=== PATIENT | male | born 1950 | race Two or more races ===

== ENCOUNTER 2025-01-06 09:21 | Inpatient (IN) | payer MEDICARE, MEDICAID ==
[~2025-01-06] VITALS: Ht 170.2 cm; Wt 46.8 kg
[2025-01-06] VITALS (8 sets, daily range): BP systolic 92–120; BP diastolic 46–61; PULSE 78–97; RESP 17–28; TEMP 98.2–98.4; O2SAT 96–100
--- NOTE | 2025-01-06 09:30 | ED.PDOC ---
SOB-HPI HPI Comments 74 year old male with PMHx COPD, HLD presents to the ED via EMS with a chief complaint of shortness of breath onset today (01/06/25). Per EMS, patient was experiencing shortness of breath was anxious, O2 was 60% on RA. Patient was placed on c-pap, given a breathing treatment in route to ED, O2 sat improved to 85%. Patient is a poor historian. No other symptoms or modifying factors present at this time. Chief Complaint: Shortness of Breath Time Seen by MD: 09:20 Reviewed notes: Medications, Allergies Information Source: Patient, Emergency Med Personnel Mode of Arrival: EMS Severity: Moderate Timing: Hours Duration: Since onset Context: At Rest PE Risk Factors: None History of: COPD, Anxiety Prehospital treatment: Breathing Tx, C-Pap Modifying Factors: Nothing Associated Signs and Symptoms: Anxiety Past Medical History PAST MEDICAL HISTORY: Anxiety, COPD, High Lipids Surgical History: Denies all surgeries Family History Family History: Reviewed,noncontributory to illness, No family hx of Cancer, No family hx of DM, No family hx of Heart carole, No family hx of HTN, No family hx ofKidney carole, No family hx of Liver carole, No family hx of Lung carole, No family hx of Stroke Social History Smoker: Non-Smoker Alcohol: Denies ETOH Use Drugs: Denies Drug Use Lives In: Home Constitutional: denies: chills, diaphoresis, fatigue, fever, malaise, sweats, weakness, others EENTM: denies: blurred vision, double vision, ear bleeding, ear discharge, ear drainage, ear pain, ear ringing, eye pain, eye redness, hearing loss, mouth pain, mouth swelling, nasal discharge, nose bleeding, nose congestion, nose pain, photophobia, tearing, throat pain, throat swelling, voice changes, others Respiratory: reports: shortness of breath; denies: cough, hemoptysis, orthopnea, SOB at rest, SOB with excertion, stridor, wheezing, others Cardiovascular: denies: chest pain, dizzy spells, diaphoresis, Dyspnea on exertion, edema, irregular heart beat, left arm pain, lightheadedness, palpitations, PND, syncope, others Gastrointestinal: denies: abdomen distended, abdominal pain, blood streaked bowels, constipated, diarrhea, dysphagia, difficulty swallowing, hematemesis, melena, nausea, poor appetite, poor fluid intake, rectal bleeding, rectal pain, vomiting, others Genitourinary: denies: burning, dysuria, flank pain, frequency, hematuria, incontinence, penile discharge, penile sore, pain, testicle pain, testicle swelling, urgency, others Neurological: denies: dizziness, fainting, headache, left sided numbness, left sided weakness, numbness, paresthesia, pre-existing deficit, right sided numbness, right sided weakness, seizure, speech problems, tingling, tremors, weakness, others Musculoskeletal: denies: back pain, gout, joint pain, joint swelling, muscle pain, muscle stiffness, neck pain, others Integumetry: denies: bruises, change in color, change in hair/nails, dryness, laceration, lesions, lumps, rash, wounds, others Allergic/Immunocompromised: denies: Difficulty Healing, Frequent Infections, Hives, Itching, others Hematologic/Lymphatic: denies: anemia, blood clots, easy bleeding, easy bruising, swollen glands, others Endocrine: denies: excessive hunger, excessive sweating, excessive thirst, excessive urination, flushing, intolerance to cold, intolerance to heat, un explained weight gain, unexplained weight loss, others Psychiatric: reports: anxiety; denies: bipolar disorder, depression, hopeless, panic disorder, schizophrenia, sleepless, suicidal, others All Other Systems: Reviewed and Negative Physical Exam General Appearance: Normal HEENT: Normal ENT Inspection, Pharynx Normal, TMs Normal Neck: Full Range of Motion, Non-Tender, Normal, Normal Inspection Respiratory: Other (tachypenic) Cardiovascular: No Edema, No JVD, No Murmur, No Gallop, Tachycardia Breast Exam: Deferred Gastrointestinal: No Organomegaly, Non Tender, No Pulsatile Mass, Normal Bowel Sounds, Soft Genitalia: Deferred Pelvic: Deferred Rectal: Deferred Extremities: No calf tenderness, Normal capillary refill, Normal inspection, Normal range of motion, Non-tender, No pedal edema Musculoskeletal : Apperance: Normal Neurologic: Alert, block engraver II-XII nml as Tested, No Motor Deficits, Normal Affect, Normal Mood, No Sensory Deficits Cerebellar Function: Normal Reflexes: Normal Skin: Dry, Normal Color, Warm Lymphatic: No Adenopathy Was a procedure done? Was a procedure done?: No Differential Dx Differential Diagnosis: CHF, COPD, Pneumonia X-Ray, Labs, Meds, VS Vital Signs Date Time Temp Pulse Resp B/P (MAP) Pulse Ox O2 Delivery O2 Flow Rate FiO2 01/06/25 11:30 87 16 95/59 (71) 100 01/06/25 09:30 98.4 109 34 143/72 (95) 99 98.4 01/06/25 09:30 105 143/72 Facial BiPAP Mask 40 01/06/25 09:30 Bi-Pap+ 40 40 01/06/25 09:23 109 01/06/25 09:21 98.4 110 28 143/72 96 98.4 Lab Test 01/06/25 11:45 01/06/25 10:34 Range/Units Troponin I High Sensitivity Pending 11 </=54 ng/L White Blood Count 12.7 H 4.4-10.8 10^3/uL Red Blood Count 3.65 L 4.5-5.90 10^6/uL Hemoglobin 10.7 L 13.5-17.5 g/dL Hematocrit 32.8 L 41.0-53.0 % Mean Corpuscular Volume 90.0 80.0-100.0 fL Mean Corpuscular Hemoglobin 29.4 28.0-32.0 pg Mean Corpuscular Hemoglobin Concent 32.7 32.0-36.0 g/dL Red Cell Distribution Width 17.3 H 11.8-14.3 % Platelet Count 212 140-450 10^3/uL Mean Platelet Volume 9.6 6.9-10.8 fL Neutrophils (%) (Auto) 89.7 H 37.0-80.0 % Lymphocytes (%) (Auto) 3.9 L 10.0-50.0 % Monocytes (%) (Auto) 5.4 0.0-12.0 % Eosinophils (%) (Auto) 0.5 0.0-7.0 % Basophils (%) (Auto) 0.5 0.0-2.0 % Neutrophils # (Auto) 11.3 H 1.6-8.6 10 ^3/uL Lymphocytes # (Auto) 0.5 0.4-5.4 10 ^3/uL Monocytes # (Auto) 0.7 0-1.3 10 ^3/uL Eosinophils # (Auto) 0.1 0-0.8 10 ^3/uL Basophils # (Auto) 0.1 0-0.2 10 ^3/uL Nucleated Red Blood Cells 0.0 % Sodium Level 141 136-145 mmol/L Potassium Level 3.8 3.5-5.1 mmol/L Chloride Level 100 98-107 mmol/L Carbon Dioxide Level 34 H 20-31 mmol/L Anion Gap 7 5-15 Blood Urea Nitrogen 17 9-23 mg/dL Creatinine 0.55 L 0.700-1.30 mg/dL Glomerular Filtration Rate Calc 105 >90 mL/min BUN/Creatinine Ratio 30.9 H 10.0-20.0 Serum Glucose 129 H 74-106 mg/dL Calcium Level 8.8 8.7-10.4 mg/dL B-Type Natriuretic Peptide 40.41 0-100 pg/mL [place] [id number] Ph: [phone] DIAGNOSTIC IMAGING Diagnostic Imaging Report : [id number] Signed PATIENT: NAIN SINGH ACCT: [id number] UNIT: [id number] : 1950 LOC: ER ROOM / BED: / AGE / SEX: 74 / M ADM STATUS: REG ER SERVICE 6 ORDERING PHYSICIAN: ANASTASIA BARAJAS MD PROCEDURE(s): CXRP - CHEST PORTABLE REASON: chest pain ORDER NUMBER(s): [id number], ACCESSION NUMBER(s): [id number] EXAM: XY CHEST PORTABLE Indication: chest pain Technique: Single frontal view of the chest was obtained Comparison: XR CHEST 1 VIEW on DOS: 10/08/24, XR CHEST 1 VIEW on DOS: 06/29/24, XY CHEST XRAY 1 VIEW on DOS: 11/17/23, XY CHEST PORTABLE on DOS: 10/18/23, XY CHEST PORTABLE on DOS: 10/09/23 FINDINGS: Lines and Tubes: None Lungs: Right apical pleural / parenchymal scarring. Blunting of the left costophrenic angle suggestive of pleural/parenchymal scarring versus trace left pleural effusion. Right costophrenic angle is collimated from field of view. Pleura: No effusion. No pneumothorax. Cardiomediastinal contours: Unremarkable Bones: No acute osseous abnormality. IMPRESSION: Blunting of the left costophrenic angle suggestive of pleural/parenchymal scarring versus trace left pleural effusion. Right costophrenic angle is collimated from field of view. ATED BY: SUZANNE MULLIGAN MD DICTATED DATE/TIME: 01/06/25 102 SIGNED BY: SUZANNE MULLIGAN MD SIGNED DATE/TIME: 01/06/25 102 CC: Time of 1ST Reevaluation: 09:50 Reevaluation 1ST: Unchanged Patient Education/Counseling: Diagnosis, Treatment, Prognosis Family Education/Counseling: No Family Present SEPSIS Sepsis Screen Physician Orders Chest Portable (01/06/25 09:27) Electrocardigram (01/06/25 09:27) Troponin-I Hs (01/06/25 10:27) Troponin-I Hs (01/06/25 12:27) Electrocardigram (01/06/25 10:27) Electrocardigram (01/06/25 12:27) BIPAP (01/06/25 09:30) Abg W/ Co-Ox (01/06/25 10:30) Vital Signs Date Time Temp Pulse Resp B/P (MAP) Pulse Ox O2 Delivery O2 Flow Rate FiO2 01/06/25 11:30 87 16 95/59 (71) 100 01/06/25 09:30 98.4 109 34 143/72 (95) 99 98.4 01/06/25 09:30 105 143/72 Facial BiPAP Mask 40 01/06/25 09:30 Bi-Pap+ 40 40 01/06/25 09:23 109 01/06/25 09:21 98.4 110 28 143/72 96 98.4 Laboratory Tests Test 01/06/25 10:34 White Blood Count 12.7 10^3/uL (4.4-10.8) H Departure 1 Departure Time of Disposition: 12:10 (Patient presented with acute shortness of breath concerning for acute on chronic COPD Exacerbation, Pneumonia, ACS, CHF, Pneumothorax. Less likely PE, Dissection. Data: 1. I ordered and reviewed the result of at least 3 labs including a CBC, BMP, and Troponin. 2. I independently interpreted the following tests: Chest X-ray shows .Risk:This patient has a high risk of morbidity due to further diagnostic testing or treatment and may suffer from respiratory or cardiac etiology . Workup reveals a likely COPD Exacerbation and patient should be admitted for further workup. and possible expert consultation.) Impression: Primary Impression: Acute and chronic respiratory failure Additional Impressions: COPD exacerbation Shortness of breath Disposition: ADMITTED INPATIENT Admit to: [facility] Condition: Guarded Critical Care Note Critical Care Time?: Yes Critical care comment: Acute on chronic respiratory failure Authorized and Performed by: Anastasia Barajas MD Total critical care time: Approximately 129 minutes Due to a high probability of clinically significant, life threatening deterioration, the patient required my highest level of preparedness to intervene emergently and I personally spent this critical care time directly and personally managing the patient. This critical care time included obtaining a history; examining the patient; pulse oximetry; ordering and review of studies; arranging urgent treatment with development of a management plan; evaluation of patient's response to treatment; frequent reassessment; and, discussions with other providers. This critical care time was performed to assess and manage the high probability of imminent, life-threatening deterioration that could result in multi-organ failure. It was exclusive of separately billable procedures and treating other patients and teaching time. Please see my other sections and the rest of the note for further information on patient assessment and treatment. Stability Stability form required: No Heart Score Heart Score: Heart Score Response (Comments) Value History Moderate Suspicious 1 EKG Repolarization Disturb 1 Age >65 2 Risk Factors >3 or Hx ASHD 2 Troponin >3 x's Normal limit 2 Total 8 I personally scribed for ANASTASIA BARAJAS MD ([email or web address]) on 01/06/25 at 09:30. Electronically submitted by Sandra Shahid ([email or web address]). I personally scribed for ANASTASIA BARAJAS MD ([email or web address]) on 01/06/25 at 10:42. Electronically submitted by Sandra Shahid ([email or web address]). ANASTASIA BARAJAS MD Jan 06, 2025 09:30
--- NOTE | 2025-01-06 10:24 | DVH ---
EXAM: XY CHEST PORTABLE Indication: chest pain Technique: Single frontal view of the chest was obtained Comparison: XR CHEST 1 VIEW on DOS: 10/08/24, XR CHEST 1 VIEW on DOS: 06/29/24, XY CHEST XRAY 1 VIEW on DOS: 11/17/23, XY CHEST PORTABLE on DOS: 10/18/23, XY CHEST PORTABLE on DOS: 10/09/23 FINDINGS: Lines and Tubes: None Lungs: Right apical pleural / parenchymal scarring. Blunting of the left costophrenic angle suggestiv e of pleural/parenchymal scarring versus trace left pleural effusion. Right costophrenic angle is co llimated from field of view. Pleura: No effusion. No pneumothorax. Cardiomediastinal contours: Unremarkable Bones: No acute osseous abnormality. IMPRESSION: Blunting of the left costophrenic angle suggestive of pleural/parenchymal scarring versus trace left pleural effusion. Right costophrenic angle is collimated from field of view.
[2025-01-06 10:48] LABS: Hematocrit 32.8 % (41.0-53.0); Hemoglobin 10.7 g/dL (13.5-17.5); Mean Corpuscular Hemoglobin 29.4 pg (28.0-32.0); Mean Corpuscular Volume 90.0 fL (80.0-100.0); Nucleated Red Blood Cells % 0.0 %
[2025-01-06 10:53] LABS: Chloride 100 mmol/L (98-107); Potassium 3.8 mmol/L (3.5-5.1); Sodium 141 mmol/L (136-145)
[2025-01-06 10:54] LABS: Anion Gap 7 (5-15)
[2025-01-06 10:55] LABS: Calcium 8.8 mg/dL (8.7-10.4)
[2025-01-06 11:00] LABS: BUN/Creatinine Ratio 30.9 (10.0-20.0); Blood Urea Nitrogen 17 mg/dL (9-23)
[2025-01-06 11:02] LABS: Carbon Dioxide 34 mmol/L (20-31); Glucose 129 mg/dL (74-106)
[2025-01-06 12:42] LABS: Base Excess 3.3 mmol/L (-2.0-3.0)
[2025-01-06] MEDS ORDERED: ACETAMINOPHEN 325 MG TAB PO PRN (14:15)
[2025-01-06] MEDS ORDERED: ONDANSETRON HCL 4 MG/2 ML VIAL IV PRN (14:15)
[2025-01-06] MEDS ORDERED: NITROGLYCERIN 0.4 MG SL TAB SL PRN (14:15)
[2025-01-06] MEDS ORDERED: DOCUSATE SOD 100 MG CAP PO PRN (14:15)
[2025-01-06] MEDS ORDERED: MORPHINE SULFATE INJ 2 MG/ml SYRG IV PRN (14:15)
[2025-01-06] MEDS ORDERED: MIDO5TAB22 PO (14:16)
[2025-01-06] MEDS ORDERED: ATOR40TA52 PO (14:16)
--- NOTE | 2025-01-06 14:38 | DVHHP2 ---
History of Present Illness Reason for Visit: Shortness of breath History of Present Illness Grayson Allen is a 74-year-old male with past medical history of hypotension, COPD, hyperlipidemia, anxiety, and trach, who came to the hospital for shortness of breath. Patient states he became short of breath last night. It worsened in the morning prompting him to call EMS. When EMS arrived he was placed on CPAP and brought to the hospital. He was transitioned to BiPAP in the ER. As he improved he was transitioned to NC. Cardiovascular: hyperipidemia Pulmonary: COPD Psych: Anxiety Past Surgical History: Appendectomy Smoke: No ALCOHOL: none Drugs: None Lives: with Family Domestic Violence: Neg Review of Systems Constitutional: No: Fever, Chills, Sweats, Weakness, Malaise, Other Eyes: No: Pain, Vision change, Conjunctivae inflammation, Eyelid inflammation, Other, Redness ENT: No: Ear pain, Ear discharge, Nose pain, Nose discharge, Nose congestion, Mouth pain, Mouth swelling, Throat pain, Throat swelling, Other Respiratory: Shortness of breath, SOB with excertion, Wheezing; No: Cough, Dry, Hemoptysis, Pleuritic Pain, Sputum, Wheezing, Other Cardiovascular: No: Chest Pain, Palpitations, Orthopnea, Paroxysmal Noc. Dyspnea, Edema, Lt Headedness, Other Gastrointestinal: No: Nausea, Vomiting, Abdominal Pain, Diarrhea, Constipation, Melena, Hematochezia, Other Genitourinary: No Dysuria, No Frequency, No Incontinence, No Hematuria, No Retention, No Other Musculoskeletal: No: other, neck pain, shoulder pain, arm pain, back pain, hand pain, leg pain, foot pain Skin: No: Rash, Lesions, Jaundice, Bruising, Other Neurological: No: Weakness, Numbness, Incoordination, Change in speech, Confusion, Seizures, Other Allergies: Coded Allergies: NO KNOWN ALLERGIES (Unverified , 01/06/25) Medications Current Medications Medications Dose Ordered Sig/Curtis Route Start Time Stop Time Status Last Admin Dose Admin Ondansetron HCl 4 mg Q4HP PRN IV 01/06/25 14:15 UNV Docusate Sodium 100 mg BIDPRN PRN PO 01/06/25 14:15 UNV Acetaminophen 650 mg Q6HP PRN PO 01/06/25 14:15 UNV Nitroglycerin 0.4 mg Q5MINP PRN SL 01/06/25 14:15 UNV Morphine Sulfate 2 mg Q30M PRN IV 01/06/25 14:15 UNV Acetaminophen/ Hydrocodone Bitart 1 tab Q6HPRN PRN PO 01/06/25 14:15 UNV Patient Own Medication 1 tab DAILY PO 01/07/25 10:00 UNV Patient Own Medication 1 tab BID PO 01/06/25 22:00 UNV Methylprednisolone Sodium Succinate 40 mg BID IV 01/06/25 22:00 UNV Ipratropium [place] 0.5 mg Q6HWA [facility] [place] 01/06/25 18:00 UNV Albuterol 2.5 mg Q6HWA [facility] [place] 01/06/25 18:00 UNV Exam Vital Signs Vital Signs Date Time Temp Pulse Resp B/P (MAP) Pulse Ox O2 Delivery O2 Flow Rate FiO2 01/06/25 12:00 80 16 98/54 (69) 100 01/06/25 11:20 Facial BiPAP Mask 40 01/06/25 09:30 98.4 98.4 General Appearance: Alert, Oriented X3, Cooperative, moderate distress HEENT: Atraumatic, PERRLA Respiratory: Other (Diminsihed breath sounds) Cardiovascular: Regular rate, Normal S1, Normal S2 Abdominal: Normal bowel sounds, Soft, No tenderness, No hepatospenomegaly Extremities: No clubbing, No cyanosis, No edema, Normal pulses, No tenderness/swelling Skin: No rashes, No breakdown, No significant lesion Neuro: Normal gait, Normal speech, Strength at 5/5 X4 ext, Normal tone Psych/Mental Status: Mental status NL, Mood NL Labs/Xrays Labs Test 01/06/25 11:55 01/06/25 11:45 01/06/25 10:34 Range/Units Blood Gas Specimen Type Arterial Blood Gas Sample Site Right radial Blood Gas Patient Temperature 37.0 Arterial Blood Date Drawn [id number] Arterial Blood pH 7.328 L 7.350-7.450 Arterial Blood Partial Pressure CO2 59.3 H 35.0-48.0 mmHg Arterial Blood Partial Pressure O2 103.2 83.0-108.0 mmHg Arterial Blood HCO3 30.4 H 21.0-28.0 mmol/L Arterial Blood Oxygen Saturation 97.3 94.0-98.0 % Arterial Blood Base Excess 3.3 H -2.0-3.0 mmol/L Arterial Blood Oxyhemoglobin 96.2 94.0-98.0 % Arterial Blood Carboxyhemoglobin 0.3 L 0.5-1.5 % Arterial Blood Methemoglobin 0.8 0.0-1.5 % Deshawn Test Modified Blood Gas Total Hemoglobin 11.10 L 13.5-17.5 g/dL Blood Gas Set Respiration Rate 14.0 Blood Gas Modality Mask - bipap FiO2 % 40.0 Blood Gas EPAP 5 Blood Gas IPAP 12 Troponin I High Sensitivity 21 </=54 ng/L White Blood Count 12.7 H 4.4-10.8 10^3/uL Red Blood Count 3.65 L 4.5-5.90 10^6/uL Hemoglobin 10.7 L 13.5-17.5 g/dL Hematocrit 32.8 L 41.0-53.0 % Mean Corpuscular Volume 90.0 80.0-100.0 fL Mean Corpuscular Hemoglobin 29.4 28.0-32.0 pg Mean Corpuscular Hemoglobin Concent 32.7 32.0-36.0 g/dL Red Cell Distribution Width 17.3 H 11.8-14.3 % Platelet Count 212 140-450 10^3/uL Mean Platelet Volume 9.6 6.9-10.8 fL Neutrophils (%) (Auto) 89.7 H 37.0-80.0 % Lymphocytes (%) (Auto) 3.9 L 10.0-50.0 % Monocytes (%) (Auto) 5.4 0.0-12.0 % Eosinophils (%) (Auto) 0.5 0.0-7.0 % Basophils (%) (Auto) 0.5 0.0-2.0 % Neutrophils # (Auto) 11.3 H 1.6-8.6 10 ^3/uL Lymphocytes # (Auto) 0.5 0.4-5.4 10 ^3/uL Monocytes # (Auto) 0.7 0-1.3 10 ^3/uL Eosinophils # (Auto) 0.1 0-0.8 10 ^3/uL Basophils # (Auto) 0.1 0-0.2 10 ^3/uL Nucleated Red Blood Cells 0.0 % Sodium Level 141 136-145 mmol/L Potassium Level 3.8 3.5-5.1 mmol/L Chloride Level 100 98-107 mmol/L Carbon Dioxide Level 34 H 20-31 mmol/L Anion Gap 7 5-15 Blood Urea Nitrogen 17 9-23 mg/dL Creatinine 0.55 L 0.700-1.30 mg/dL Glomerular Filtration Rate Calc 105 >90 mL/min BUN/Creatinine Ratio 30.9 H 10.0-20.0 Serum Glucose 129 H 74-106 mg/dL Calcium Level 8.8 8.7-10.4 mg/dL B-Type Natriuretic Peptide 40.41 0-100 pg/mL EXAM: XY CHEST PORTABLE FINDINGS: Lines and Tubes: None Lungs: Right apical pleural / parenchymal scarring. Blunting of the left costophrenic angle suggestive of pleural/parenchymal scarring versus trace left pleural effusion. Right costophrenic angle is collimated from field of view. Pleura: No effusion. No pneumothorax. Cardiomediastinal contours: Unremarkable Bones: No acute osseous abnormality. IMPRESSION: Blunting of the left costophrenic angle suggestive of pleural/parenchymal scarring versus trace left pleural effusion. Right costophrenic angle is collimated from field of view. SEPSIS Sepsis Screen Date sepsis recognized/suspect: Jan 06, 2025 Time Sepsis recognized/suspect: 929 Recent Procedure: No On Antibiotic Therapy: No Respiratory Rate >20: Yes Heart Rate >90: Yes Temp<36 C (96.8 F) or >38.3 C: No SBP <90 or MAP <65 mmHG: No New Acute Mental Status Change: No Is the patient on CPAP, BIPAP,: Yes Physician Orders Chest Portable (01/06/25 09:27) Electrocardigram (01/06/25 09:27) Troponin-I Hs (01/06/25 12:27) Electrocardigram (01/06/25 10:27) Electrocardigram (01/06/25 12:27) BIPAP (01/06/25 09:30) Abg W/ Co-Ox (01/06/25 10:30) Admit (01/06/25 14:07) Code Status (01/06/25 14:07) 2 Gm Sodium Diet (01/06/25 Dinner) Ondansetron Hcl (Zofran) (01/06/25 14:15) Docusate Sodium Capsule (Colace Capsule) (01/06/25 14:15) Complete Blood Count (01/07/25 04:00) Comprehensive Metabolic Panel (01/07/25 04:00) Condition: Serious (01/06/25 14:07) Acetaminophen Tablet (Tylenol Tablet) (01/06/25 14:15) Nitroglycerin Sublingual (Ntrostat Subli (01/06/25 14:15) Morphine Sulfate Injection (01/06/25 14:15) Stat Ekg For Chest Pain (01/06/25 14:07) Notify Md Of Changes From Base (01/06/25 14:07) Tufter Operator For 24 Hours (01/06/25 14:07) Emergency Dysrhythmia Protocol (01/06/25 14:07) Rhythm Strips Once Every Shift (01/06/25 14:07) Oxygen By Nasal Cannula (01/06/25 14:07) Hydrocodone-Acet 5/325mg Tab ([place] 5/32 (01/06/25 14:15) (Nf) Atorvastatin Calcium (01/07/25 10:00) (Nf) Midodrine Hcl (Midodrine Hydrochlor (01/06/25 22:00) Methylprednisolone Sod Succ (Solu Medrol (01/06/25 22:00) Ipratropium Medneb (Atrovent Medneb) (01/06/25 18:00) Albuterol Medneb (Ventolin Medneb) (01/06/25 18:00) Vital Signs Date Time Temp Pulse Resp B/P (MAP) Pulse Ox O2 Delivery O2 Flow Rate FiO2 01/06/25 12:00 80 16 98/54 (69) 100 01/06/25 11:30 87 16 95/59 (71) 100 01/06/25 11:20 87 95/59 Facial BiPAP Mask 40 01/06/25 09:30 98.4 109 34 143/72 (95) 99 98.4 01/06/25 09:30 105 143/72 Facial BiPAP Mask 40 01/06/25 09:30 Bi-Pap+ 40 40 01/06/25 09:23 109 01/06/25 09:21 98.4 110 28 143/72 96 98.4 Laboratory Tests Test 01/06/25 10:34 White Blood Count 12.7 10^3/uL (4.4-10.8) H Assessment/Plan Assessment/Plan Assessment: COPD exacerbation, Anxiety, Hyperlipidemia, Hypotension, Plan: Admit to Tele, IV steroids, Breathing treatments as needed, Supplemental oxygen as needed, BiPAP as needed, Home medications reconciled, Plan discussed with: Patient My Orders Orders - MELISSA CEDILLO Procedure Category Date Status Time Admit ADMIT 01/06/25 Transmitted 14:07 Code Status CODE 01/06/25 Transmitted 14:07 2 Gm Sodium Diet DIET 01/06/25 Transmitted Dinner Ondansetron Hcl PHA 01/06/25 Logged (Zofran) 14:15 Docusate Sodium PHA 01/06/25 Logged Capsule (Colace 14:15 Complete Blood Count LAB 01/07/25 Verified 04:00 Comprehensive LAB 01/07/25 Verified Metabolic Panel 04:00 Condition: Serious RAVI 01/06/25 In Process 14:07 Acetaminophen Tablet PHA 01/06/25 Logged (Tylenol Tablet) 14:15 Nitroglycerin PHA 01/06/25 Logged Sublingual (Ntrostat 14:15 Morphine Sulfate PHA 01/06/25 Logged Injection 14:15 Stat Ekg For Chest [facility] 01/06/25 In Process Pain 14:07 Notify Md Of Changes [facility] 01/06/25 In Process From Base 14:07 Tufter Operator For [facility] 01/06/25 In Process 24 Hours 14:07 Emergency Dysrhythmia [facility] 01/06/25 In Process Protocol 14:07 Rhythm Strips Once [facility] 01/06/25 In Process Every Shift 14:07 Oxygen By Nasal RT 01/06/25 Transmitted Cannula 14:07 Hydrocodone-Acet PHA 01/06/25 Logged 5/325mg Tab ([place] 14:15 (Nf) Atorvastatin PHA 01/07/25 Logged Calcium 10:00 (Nf) Midodrine Hcl PHA 01/06/25 Logged (Midodrine Hydrochlor 22:00 Methylprednisolone PHA 01/06/25 Logged Sod Succ (Solu Medrol 22:00 Ipratropium Medneb PHA 01/06/25 Logged (Atrovent Medneb) 18:00 Albuterol Medneb PHA 01/06/25 Logged (Ventolin Medneb) 18:00 Date of Service: Jan 06, 2025 Billing Provider: MELISSA CEDILLO Common Visit Codes: [id number] INP/OBS CARE (MOD) MELISSA CEDILLO [facility] Jan 06, 2025 14:38
[2025-01-06] MEDS: HYDROcodone-ACET 5/325MG TAB PO PRN (14:53)
[2025-01-06] MEDS: MIDODRINE HCL 10 MG TAB PO SCH (18:13)
[2025-01-06] MEDS: IPRATROPIUM BROM 0.5 MG/2.5ML INH SOL NEB SCH (18:24)
[2025-01-06] MEDS: ALBUTEROL SULF 2.5 MG/0.5ML(0.5%) NEB SOLN NEB SCH (18:24)
[2025-01-06] MEDS: methylPREDNISolone SOD SUCC 40 MG/ML VL IV SCH (22:57)
[2025-01-06] MEDS: ATORVASTATIN 20 MG TAB PO SCH (22:57)
[2025-01-07] VITALS (14 sets, daily range): BP systolic 98–126; BP diastolic 54–62; PULSE 62–96; RESP 16–23; TEMP 97.5–98.7; O2SAT 97–100
[2025-01-07 07:23] LABS: Hematocrit 30.8 % (41.0-53.0); Hemoglobin 10.2 g/dL (13.5-17.5); Mean Corpuscular Hemoglobin 29.4 pg (28.0-32.0); Mean Corpuscular Volume 88.5 fL (80.0-100.0); Nucleated Red Blood Cells % 0.0 %
[2025-01-07 07:26] LABS: Alanine Aminotransferase 15 U/L (7-40); Albumin 3.9 g/dL (3.2-4.8); Alkaline Phosphatase 70 U/L (46-116); Anion Gap 8 (5-15); BUN/Creatinine Ratio 33.3 (10.0-20.0); Blood Urea Nitrogen 16 mg/dL (9-23); Calcium 8.7 mg/dL (8.7-10.4); Chloride 99 mmol/L (98-107); Potassium 4.5 mmol/L (3.5-5.1); Sodium 138 mmol/L (136-145); Total Protein 5.8 g/dL (5.7-8.2)
[2025-01-07 07:28] LABS: Bilirubin, Total 0.6 mg/dL (0.2-1.0)
[2025-01-07 07:30] LABS: Carbon Dioxide 31 mmol/L (20-31); Glucose 132 mg/dL (74-106)
--- NOTE | 2025-01-07 13:45 | DVHPN2 ---
Changes from previous H/P or p: No Changes Eyes: No Pain, No Vision change, No Conjunctivae inflammation, No Eyelid inflammation, No Other, No Redness ENT: No Ear pain, No Ear discharge, No Nose pain, No Nose discharge, No Nose congestion, No Mouth pain, No Mouth swelling, No Throat pain, No Throat swelling, No Other Cardiovascular: No Chest Pain, No Palpitations, No Orthopnea, No Paroxysmal Noc. Dyspnea, No Edema, No Lt Headedness, No Other Respiratory: No Cough, No Dry; Shortness of breath, SOB with excertion, W heezing; No Hemoptysis, No Pleuritic Pain, No Sputum, No Other Gastrointestinal: No Nausea, No Vomiting, No Abdominal Pain, No Diarrhea, No Constipation, No Melena, No Hematochezia, No Other Genitourinary: No Dysuria, No Frequency, No Incontinence, No Hematuria, No Retention, No Other Musculoskeletal: No other, No neck pain, No shoulder pain, No arm pain, No back pain, No hand pain, No leg pain, No foot pain Skin: No Rash, No Lesions, No Jaundice, No Bruising, No Other Objective Vitals Vital Signs Date Time Temp Pulse Resp B/P (MAP) Pulse Ox O2 Delivery O2 Flow Rate FiO2 01/07/25 12:41 97.7 71 18 99/59 (72) 99 97.7 01/07/25 08:00 Nasal Cannula* 2 28 Intake/Output Intake and Output 01/07/25 07:00 Intake Total 340 ml Output Total 340 ml Balance 0 ml Intake Oral 340 ml Output Urine Total 340 ml Medications Current Medications Medications Dose Ordered Sig/Curtis Route Start Time Stop Time Status Last Admin Dose Admin Ondansetron HCl 4 mg Q4HP PRN IV 01/06/25 14:15 Docusate Sodium 100 mg BIDPRN PRN PO 01/06/25 14:15 Acetaminophen 650 mg Q6HP PRN PO 01/06/25 14:15 Nitroglycerin 0.4 mg Q5MINP PRN SL 01/06/25 14:15 Morphine Sulfate 2 mg Q30M PRN IV 01/06/25 14:15 Acetaminophen/ Hydrocodone Bitart 1 tab Q6HPRN PRN PO 01/06/25 14:15 01/07/25 08:06 1 TAB Atorvastatin Calcium 40 mg HS PO 01/06/25 22:00 01/06/25 22:57 40 MG Midodrine 5 mg BIDWM PO 01/06/25 18:00 01/07/25 08:03 5 MG Methylprednisolone Sodium Succinate 40 mg BID IV 01/06/25 22:00 01/07/25 10:00 40 MG Ipratropium [place] 0.5 mg Q6HWA NEB 01/06/25 18:00 01/07/25 06:37 0.5 MG Albuterol 2.5 mg Q6HWA [facility] 01/06/25 18:00 01/07/25 06:37 2.5 MG Laboratory Results Laboratory Tests 01/07/25 06:19 Chemistry Test 01/07/25 06:19 Albumin 3.9 g/dL (3.2-4.8) Calcium Level 8.7 mg/dL (8.7-10.4) Total Protein 5.8 g/dL (5.7-8.2) LFT Test 01/07/25 06:19 Alanine Aminotransferase (ALT) 15 U/L (7-40) Alkaline Phosphatase 70 U/L (46-116) Aspartate Amino Transferase (AST) 14 U/L (13-40) Total Bilirubin 0.6 mg/dL (0.2-1.0) Labs and/or images reviewed: Labs reviewed by me, Image(s) reviewed by me Assessment/Plan Assessment/Plan Sepsis secondary to community-acquired pneumonia Gram-positive versus Gram- negative Rocephin azithromycin Acute on chronic hypoxic respiratory failure: Oxygen by nasal cannula Acute COPD exacerbation: Albuterol Atrovent Solu-Medrol Anxiety Hypertension Hyperlipidemia Time spent 55 minutes Advanced care planning time 20 minutes Patient is full code Plan discussed with: Patient My Orders Orders - ALEXA HUANG MD Procedure Category Date Status Time Rapid Influenza A&B LAB 01/07/25 Logged 13:41 Covid19 Antigen [facility] LAB 01/07/25 Logged Ceftriaxone Ivpb PHA 01/08/25 Verified Rocephin 09:00 Ceftriaxone Ivpb PHA 01/07/25 Verified Rocephin 13:45 Azithromycin 500mg/ PHA 01/08/25 Verified 250ml (Zithromax 50 10:00 Azithromycin 500mg/ PHA 01/07/25 Verified 250ml (Zithromax 50 13:45 Date of Service: Jan 07, 2025 Billing Provider: ALEXA HUANG MD Common Visit Codes: [id number] INP/OBS CARE(HIGH) Secondary Visit Codes: [id number] CARE PLAN 30 MINUTES ALEXA HUANG MD Jan 07, 2025 13:45
[2025-01-07] MEDS ORDERED: LORazepam 0.5 MG TAB PO PRN (15:00)
[2025-01-07] MEDS: SODIUM CHLORIDE 0.9% 1,000 ML IV SCH (15:48)
--- NOTE | 2025-01-07 16:04 | ECG ---
[facility] Test Date: 2025-01-06 Test Time: 09:23:23 Pat Name: NAIN SINGH Department: Room: 0250T A Gender: M Market Research Assistant: MICHAEL : 1950 Requested By: ANASTASIA MARI Order Number: [id number] Reading MD: Irving Poon Measurements Intervals [place] Rate: 109 P: 84 [place]: 151 QRS: -12 QRSD: 128 T: 75 QT: 363 QTc: 489 Interpretive Statements Sinus tachycardia Right atrial enlargement Right bundle branch block ST elevation, consider anterolateral injury Artifact in lead(s) I,II,III,aVR,aVL,aVF,V1 Electronically Signed On 01-07-2025 16:38:44 PDT by Irving Poon Please click the below link to view image of tracing.
[2025-01-07] MEDS: ALBUTEROL SULF 2.5 MG/0.5ML(0.5%) NEB SOLN NEB PRN (16:11)
[2025-01-07] MEDS: IPRATROPIUM BROM 0.5 MG/2.5ML INH SOL NEB PRN (16:11)
[2025-01-07] MEDS: AZITHROMYCIN 500MG/ 250ML 250 ML IV ONE (17:02)
[2025-01-07] MEDS: Ensure HIGH Protein Chocolate 8oz Bottle PO SCH (18:02)
[2025-01-07 20:49] LABS: COVID19 ANTIGEN SOFIA FIA NEGATIVE (NEGATIVE)
[2025-01-08] VITALS (13 sets, daily range): BP systolic 110–126; BP diastolic 61–71; PULSE 71–100; RESP 18–24; TEMP 36.6; O2SAT 94–100
--- NOTE | 2025-01-08 11:45 | DVHPN2 ---
Reviewed: Care Plan, H&P, Labs, Medications, Previous Orders, Radiology Changes from previous H/P or p: No Changes Eyes: No Pain, No Vision change, No Conjunctivae inflammation, No Eyelid inflammation, No Other, No Redness ENT: No Ear pain, No Ear discharge, No Nose pain, No Nose discharge, No Nose congestion, No Mouth pain, No Mouth swelling, No Throat pain, No Throat swelling, No Other Cardiovascular: No Chest Pain, No Palpitations, No Orthopnea, No Paroxysmal Noc. Dyspnea, No Edema, No Lt Headedness, No Other Respiratory: No Cough, No Dry; Shortness of breath, SOB with excertion, W heezing; No Hemoptysis, No Pleuritic Pain, No Sputum, No Other Gastrointestinal: No Nausea, No Vomiting, No Abdominal Pain, No Diarrhea, No Constipation, No Melena, No Hematochezia, No Other Genitourinary: No Dysuria, No Frequency, No Incontinence, No Hematuria, No Retention, No Other Musculoskeletal: No other, No neck pain, No shoulder pain, No arm pain, No back pain, No hand pain, No leg pain, No foot pain Skin: No Rash, No Lesions, No Jaundice, No Bruising, No Other Objective Vitals Vital Signs Date Time Temp Pulse Resp B/P (MAP) Pulse Ox O2 Delivery O2 Flow Rate FiO2 01/08/25 09:00 98.1 88 19 113/61 (78) 99 98.1 01/08/25 08:20 Nasal Cannula* 3 32 Intake/Output Intake and Output 01/08/25 07:00 Intake Total 2560 ml Output Total 2075 ml Balance 485 ml Intake Oral 2510 ml IV Total 50 ml Output Urine Total 2075 ml # Bowel Movements 2 Medications Current Medications Medications Dose Ordered Sig/Curtis Route Start Time Stop Time Status Last Admin Dose Admin Ondansetron HCl 4 mg Q4HP PRN IV 01/06/25 14:15 Docusate Sodium 100 mg BIDPRN PRN PO 01/06/25 14:15 Acetaminophen 650 mg Q6HP PRN PO 01/06/25 14:15 Nitroglycerin 0.4 mg Q5MINP PRN SL 01/06/25 14:15 Morphine Sulfate 2 mg Q30M PRN IV 01/06/25 14:15 Acetaminophen/ Hydrocodone Bitart 1 tab Q6HPRN PRN PO 01/06/25 14:15 01/08/25 02:06 1 TAB Atorvastatin Calcium 40 mg HS PO 01/06/25 22:00 01/07/25 21:01 40 MG Midodrine 5 mg BIDWM PO 01/06/25 18:00 01/08/25 09:27 5 MG Methylprednisolone Sodium Succinate 40 mg BID IV 01/06/25 22:00 01/08/25 09:24 40 MG Ipratropium [place] 0.5 mg Q6HWA [facility] 01/06/25 18:00 01/08/25 07:08 0.5 MG Albuterol 2.5 mg Q6HWA [facility] 01/06/25 18:00 01/08/25 07:08 2.5 MG Ceftriaxone Sodium 50 ml @ 100 mls/hr DAILY@09 IV 01/08/25 09:00 01/08/25 09:25 100 MLS/HR Azithromycin 250 ml @ 125 mls/hr DAILY IV 01/08/25 10:00 Enteral Nutritional Formula 240 ml TIDWM PO 01/07/25 18:00 01/07/25 18:02 240 ML Sodium Chloride 1,000 ml @ 125 mls/hr Q8H IV 01/07/25 15:00 01/08/25 09:24 125 MLS/HR Lorazepam 1 mg Q8HP PRN PO 01/07/25 15:00 Albuterol 2.5 mg Q6HPRN PRN NEB 01/07/25 15:30 01/08/25 00:49 2.5 MG Ipratropium [place] 0.5 mg Q6HPRN PRN [facility] 01/07/25 15:30 01/08/25 00:48 0.5 MG Laboratory Results Laboratory Tests 01/07/25 06:19 Labs and/or images reviewed: Labs reviewed by me, Image(s) reviewed by me Assessment/Plan Assessment/Plan Sepsis secondary to community-acquired pneumonia Gram-positive versus Gram- negative Rocephin azithromycin Acute on chronic hypoxic respiratory failure: Oxygen by nasal cannula Acute COPD exacerbation: Albuterol Atrovent Solu-Medrol Anxiety Hypertension Hyperlipidemia Patient wants to go home today Time spent 55 minutes Patient is full code Plan discussed with: Patient My Orders Orders - ALEXA HUANG MD Procedure Category Date Status Time Ceftriaxone 1gm/50ml PHA 01/08/25 In Process (Rocephin) 09:00 Azithromycin 500mg/ PHA 01/08/25 In Process 250ml (Zithromax 50 10:00 Mrsa Screen TIFFANY 01/07/25 In Process 14:47 Nutritional PHA 01/07/25 In Process Supplements (Ensure 18:00 Sodium Chloride 0.9% PHA 01/07/25 In Process 15:00 Lorazepam Tablet PHA 01/07/25 In Process (Ativan Tablet) 15:00 Albuterol Medneb PHA 01/07/25 In Process (Ventolin Medneb) 15:30 Ipratropium Medneb PHA 01/07/25 In Process (Atrovent Medneb) 15:30 Date of Service: Jan 08, 2025 Billing Provider: ALEXA HUANG MD Common Visit Codes: [id number] INP/OBS CARE(HIGH) ALEXA HUANG MD Jan 08, 2025 11:45
[2025-01-08] MEDS: AZITHROMYCIN 500MG/ 250ML 250 ML IV SCH (12:04)
[2025-01-08] MEDS ORDERED: AZIT500T66 PO (13:28)
--- NOTE | 2025-01-08 13:33 | DVHDS2 ---
Discharge Summary Date of Admission Jan 06, 2025 at 14:07 Date of Discharge: Jan 08, 2025 Admitting Diagnosis Shortness of breath Wounds: None Labs/Diagnostic Data: Laboratory Results Test 01/07/25 13:41 01/07/25 06:19 01/07/25 00:00 01/06/25 13:50 Influenza Type A Antigen Negative (Negative) Influenza Type B Antigen Negative (Negative) White Blood Count 12.6 10^3/uL (4.4-10.8) Red Blood Count 3.48 10^6/uL (4.5-5.90) Hemoglobin 10.2 g/dL (13.5-17.5) Hematocrit 30.8 % (41.0-53.0) Mean Corpuscular Volume 88.5 fL (80.0-100.0) Mean Corpuscular Hemoglobin 29.4 pg (28.0-32.0) Mean Corpuscular Hemoglobin Concent 33.2 g/dL (32.0-36.0) Red Cell Distribution Width 17.1 % (11.8-14.3) Platelet Count 231 10^3/uL (140-450) Mean Platelet Volume 10.0 fL (6.9-10.8) Neutrophils (%) (Auto) 97.5 % (37.0-80.0) Lymphocytes (%) (Auto) 1.7 % (10.0-50.0) Monocytes (%) (Auto) 0.7 % (0.0-12.0) Eosinophils (%) (Auto) 0.0 % (0.0-7.0) Basophils (%) (Auto) 0.1 % (0.0-2.0) Neutrophils # (Auto) 12.3 10 ^3/uL (1.6-8.6) Lymphocytes # (Auto) 0.2 10 ^3/uL (0.4-5.4) Monocytes # (Auto) 0.1 10 ^3/uL (0-1.3) Eosinophils # (Auto) 0 10 ^3/uL (0-0.8) Basophils # (Auto) 0 10 ^3/uL (0-0.2) Nucleated Red Blood Cells 0.0 % Sodium Level 138 mmol/L (136-145) Potassium Level 4.5 mmol/L (3.5-5.1) Chloride Level 99 mmol/L (98-107) Carbon Dioxide Level 31 mmol/L (20-31) Anion Gap 8 (5-15) Blood Urea Nitrogen 16 mg/dL (9-23) Creatinine 0.48 mg/dL (0.700-1.30) Glomerular Filtration Rate Calc 110 mL/min (>90) BUN/Creatinine Ratio 33.3 (10.0-20.0) Serum Glucose 132 mg/dL (74-106) Calcium Level 8.7 mg/dL (8.7-10.4) Total Bilirubin 0.6 mg/dL (0.2-1.0) Aspartate Amino Transferase (AST) 14 U/L (13-40) Alanine Aminotransferase (ALT) 15 U/L (7-40) Alkaline Phosphatase 70 U/L (46-116) Total Protein 5.8 g/dL (5.7-8.2) Albumin 3.9 g/dL (3.2-4.8) SARS-CoV-2 Antigen (Rapid) Negative (NEGATIVE) Troponin I High Sensitivity 27 ng/L (</=54) Test 01/06/25 11:55 01/06/25 10:34 Blood Gas Specimen Type Arterial Blood Gas Sample Site Right radial Blood Gas Patient Temperature 37.0 Arterial Blood Date Drawn [id number] Arterial Blood pH 7.328 (7.350-7.450) Arterial Blood Partial Pressure CO2 59.3 mmHg (35.0-48.0) Arterial Blood Partial Pressure O2 103.2 mmHg (83.0-108.0) Arterial Blood HCO3 30.4 mmol/L (21.0-28.0) Arterial Blood Oxygen Saturation 97.3 % (94.0-98.0) Arterial Blood Base Excess 3.3 mmol/L (-2.0-3.0) Arterial Blood Oxyhemoglobin 96.2 % (94.0-98.0) Arterial Blood Carboxyhemoglobin 0.3 % (0.5-1.5) Arterial Blood Methemoglobin 0.8 % (0.0-1.5) Deshawn Test Modified Blood Gas Total Hemoglobin 11.10 g/dL (13.5-17.5) Blood Gas Set Respiration Rate 14.0 Blood Gas Modality Mask - bipap FiO2 % 40.0 Blood Gas EPAP 5 Blood Gas IPAP 12 B-Type Natriuretic Peptide 40.41 pg/mL (0-100) Other Laboratory Tests 01/07/25 06:19 Brief Hx & Hospital Course: 74-year-old male with COPD chronic oxygen use at home anxiety hypertension hyperlipidemia history of smoking in the past came in complaining of shortness of breaths found to have exacerbation of COPD and community-acquired pneumonia treated with Rocephin azithromycin Atrovent albuterol and Solu-Medrol. The patient is requesting to be discharged home today itself at the time of discharge is on 2 L of oxygen which is his usual requirement at home discharged home on oxygen. Prescription for azithromycin transmitted to the pharmacy. Consults/Reason for consult None Operations or Procedures None Condition at Discharge: Fair Final Diagnosis/Problems List Sepsis secondary to community-acquired pneumonia Gram-positive versus Gram-negative Rocephin azithromycin Acute on chronic hypoxic respiratory failure: Oxygen by nasal cannula Acute COPD exacerbation: Albuterol Atrovent Solu-Medrol Anxiety Hypertension Hyperlipidemia Discharge Disposition: Home Discharge Instruct/Medications Diet: Cardiac 2g Na,low cholest Activity: Light activity Follow Up/Referral: Follow up with primary Dr Cao all Previous home medications Medications: Azithromycin Transmitted to pharmacy Scheduled Atorvastatin Calcium (Atorvastatin Calcium), 1 TAB PO DAILY, (Reported) Azithromycin (Azithromycin), 1 TAB PO DAILY Midodrine HCl (Midodrine Hydrochloride), 1 TAB PO BID, (Reported) 35 (Time taken for discharge summary 35 minutes) Discharge Statement: "Patient was advised to return to the ER or call 911 if any headaches, dizziness, shortness of breath, chest pain, abdominal pain, bleeding, fevers, or worsening of medical condition. Patient was counseled about treatment plan, medications, possible side effects, patientverbalized understanding. All questions were answered to the best of my ability. This discharge took greater then 30 minutes in planning, reviewing documentation, counseling the patient, and discussing with other team members." ASSESSMENT ASSESSMENT Hospital Course Uneventful Assessment Sepsis secondary to community-acquired pneumonia Gram-positive versus Gram- negative Rocephin azithromycin Acute on chronic hypoxic respiratory failure: Oxygen by nasal cannula Acute COPD exacerbation: Albuterol Atrovent Solu-Medrol Anxiety Hypertension Hyperlipidemia Date of Service: Jan 08, 2025 Billing Provider: ALEXA HUANG MD Common Visit Codes: [id number] DISCH DAY >30min ALEXA HUANG MD Jan 08, 2025 13:33
== END 2025-01-08 18:23 | disposition home or self-care (01) | DRG 871 ==
LOC: EDBD 09:21 → ER 09:21 → OVERFLOW 14:07 → TELE-EAST 22:17
PROVIDERS: ADMIT Family Medicine; ATTEND Family Medicine
PROC: 5A09357 Assistance with Respiratory Ventilation, Less than 24 Consecutive Hours, Continuous Positive Airway Pressure (ICD-10-PCS; principal; 2025-01-06)
DX: A41.59 Other Gram-negative sepsis (principal); J15.69 Pneumonia due to other Gram-negative bacteria; J96.21 Acute and chronic respiratory failure with hypoxia; J15.9 Unspecified bacterial pneumonia; J44.1 Chronic obstructive pulmonary disease with (acute) exacerbation; J44.0 Chronic obstructive pulmonary disease with (acute) lower respiratory infection; E78.5 Hyperlipidemia, unspecified; F41.9 Anxiety disorder, unspecified; I95.9 Hypotension, unspecified; I10 Essential (primary) hypertension; Z87.891 Personal history of nicotine dependence; Z79.899 Other long term (current) drug therapy
CPT/HCPCS: 36415; 36600; 71045; 80048; 80053; 82805; 83880; 84484; 85025; 87081; 87426; 87804; 93005; 94640; 94660; 99291; 99292; G0378